=== PATIENT | female | born 1960 | race Caucasian/White ===

== ENCOUNTER 2018-05-29 11:20 | Emergency (ER) | payer MEDICARE, MEDICAID ==
[~2018-05-29] VITALS: Ht 157.5 cm; Wt 78.0 kg
[~2018-05-29 11:20] MED LIST: ARIP10TA15 PO; BUPR300T53 PO; CELE-193 PO; CLON-527 PO; ESTR0.6261 PO; FENT1PAT TOP; FURO-150 PO; LUBI24CA5 PO; LYR25C PO; LYR75C PO; MEDR2.5T7 PO; POTA20TA19 PO; PRO100T PO; SPIR25TA PO; SYN0.088T PO; TRAZ-218 PO
[2018-05-29] MEDS ORDERED: LORazepam 1 MG tablet PO ONE (11:50)
[2018-05-29] MEDS ORDERED: LORA1TAB PO (12:05)
[2018-05-29 12:18] VITALS: BP 175/89
== END 2018-05-29 12:20 | disposition home or self-care (01) ==
LOC: ER 11:21
DX: F41.9 Anxiety disorder, unspecified (principal); M19.90 Unspecified osteoarthritis, unspecified site; Z56.0 Unemployment, unspecified; Z79.899 Other long term (current) drug therapy
CPT/HCPCS: 99284